=== PATIENT | female | born 1990 | race Caucasian/White ===

== ENCOUNTER 2019-02-08 17:50 | Emergency (ER) | payer OTHER ==
[~2019-02-08] VITALS: Ht 160 cm; Wt 51.7 kg
[2019-02-08 18:04] VITALS: Ht 160 cm; Wt 51.7 kg
[2019-02-08 23:13] VITALS: BP 101/63
== END 2019-02-08 23:13 | disposition home or self-care (01) ==
LOC: ED 17:50
DX: K59.00 Constipation, unspecified (principal)
CPT/HCPCS: J1885; Q0162

== ENCOUNTER 2019-08-28 15:42 | Emergency (ER) | payer OTHER ==
[~2019-08-28] VITALS: Ht 154.9 cm; Wt 53.1 kg
[2019-08-28 15:50] VITALS: BP 113/62; Ht 154.9 cm; Wt 53.1 kg
== END 2019-08-28 17:59 | disposition home or self-care (01) ==
LOC: ED 15:42
DX: S13.4XXA Sprain of ligaments of cervical spine, initial encounter (principal); S09.8XXA Other specified injuries of head, initial encounter; Z98.890 Other specified postprocedural states; V48.6XXA Car passenger injured in noncollision transport accident in traffic accident, initial encounter; Y93.I9 Activity, other involving external motion; Y92.411 Interstate highway as the place of occurrence of the external cause; Y99.8 Other external cause status
CPT/HCPCS: J7030; J7040